=== PATIENT | male | born 1960 | race Caucasian/White ===

== ENCOUNTER 2016-06-26 08:47 | Emergency (ER) | payer SELFPAY ==
[2016-06-26] MEDS ORDERED: traMADol HCL 50 MG TABLET PO ONE (10:01)
--- NOTE | 2016-06-26 10:20 | ED Physician Documentation ---
Low Back Pain - HISTORIAN Historian: patient - HPI Stated Complaint: low back pain Chief Complaint: Low Back Pain/ Injury Additional Information: chronic low back pain form old injury, has been hurting more last few days History: history of chronic pain:, back pain Onset: days ago (3) Duration: continues in ED Recent Injury: No Context: other (no trauma, no lifting, states gets thisd from time to time) Where: work Other Injuries: other (no new injuries) Severity: moderate Quality: similar- prior back pain Associated Symptoms: other (no radiation of pain) Worsened By:: movement to RT flexion, movement to LT flexion Relieved By: remaining still Further Comments: no - ROS CONST: no problems CVS/RESP: none EYES/ENT: none MS/SKIN/LYMPH: none Neuro/Psych: none GI/: denies: abdominal pain, black stools - PAST HX Past History: arthritis, back injury, back pain, compression fracture(s) Surgeries/Procedures: none Immunizations: referred to PCP Allergies/Adverse Reactions: Allergies Allergy/AdvReac Type Severity Reaction Status Date / Time No Known Allergies Allergy Verified 06/26/16 10:08 - SOCIAL HX Smoking History: cigarettes Alcohol Use: none Drug Use: none - FAMILY HX Family History: no significant history - REVIEWED ASSESSMENTS Nursing Assessment Reviewed: Yes Vitals Reviewed: Yes Progress - Results/Orders Results/Orders: no testing ordered - Progress Progress: pt. given tramadol 50 mg p.o. in er, being driven to motel by his boss, no work planned for today Critical Care Note - Critical Care Note Total Time (mins): 0 ED Results Lab/Radiology - Lab Results Lab Results: none ordered - Radiology Radiology Impressions: none ordered - Orders Orders: ED Orders Category Date Time Status traMADol HCL [Ultram] Med 06/26/16 10:01 Discontinued 50 mg PO NOW ONE Low Back Pain/Injury - Physical Exam General Appearance: alert, mild distress EENT: eye inspection normal, ENT inspection normal, pharynx normal, no signs of dehydration, TANIA, no nystagmus, TM's nml Neck: non-tender, painless ROM, trachea midline Resp/CVS: chest non-tender, breath sounds nml, heart sounds nml, no resp. distress, lungs clear, reg. rate & rhythm Abdomen: non-tender, no organomegaly Back: vertebral point-tendernes (spionous processes, L3-L5). No: CVA tenderness , muscle spasm Straight Leg Raising: Negative Left, Negative Right Neuro/Psych: oriented x3, motor nml, sensation nml, reflexes nml Skin: warm/dry, normal color Extremities: non-tender, normal range of motion, no evidence of injury, no edema Discharge Clincal Impression: Low back pain Qualifiers: Chronicity: chronic Back pain laterality: midline Sciatica presence: without sciatica Qualified Code(s): M54.5 - Low back pain; G89.29 - Other chronic pain Comments: discharged in stable condition with script for tramadol 50 mg # 20 1 p.o. qid prn dominique Condition: Stable Decision to Admit: NO Decision Time: 10:30
[2016-06-26 10:43] VITALS: BP 127/74
== END 2016-06-26 10:35 | disposition home or self-care (01) ==
LOC: ED 08:47
DX: M54.5 Low back pain (principal)
CPT/HCPCS: 99283